=== PATIENT | male | born 1960 | race Two or more races ===

== ENCOUNTER 2025-08-15 02:02 | Inpatient (IN) | payer MEDICAID, OTHER ==
[~2025-08-15] VITALS: Ht 172.7 cm; Wt 81.8 kg
--- NOTE | 2025-08-15 02:22 | ED.PDOC ---
History of Present Illness HPI Comments 65-year-old male who came to ER via EMS for urinary issues. Per EMS, [facility] Patient is bed-bound, has a history of traumatic brain injuries with left-sided residuals, hepatitis-C. For the past 2 hours patient has been complaining of painful urination. Denies any nausea or vomiting. On scene patient's temperature is 100.4 F, tachycardic at 130s REVIEW OF SYSTEMS: General: + fever, no chills, or fatigue HEENT: No sore throat, no earache, no congestion, no neck pain. Cardiac: No chest pain. No palpitations. Lungs: No shortness of breath, no cough. GI: No nausea, no vomiting, no diarrhea, no constipation, + abdominal pain : + dysuria, frequency, or urgency. No hematuria. Musculoskeletal: No joint pain , no joint swelling, no extremity edema. Skin: No rash, no itching. Neuro: No headache, no dizziness, no weakness (And as sated in HPI) PHYSICAL EXAM: General: Awake, alert and oriented. No acute distress. Skin: Skin in warm, dry and intact. Appropriate color for ethnicity. HEENT: The head is normocephalic and atraumatic. Conjunctivae are clear without exudates or hemorrhage. Sclera is non-icteric. Eyelids are normal in appearance without swelling or lesions. Oral mucosa is pink and moist Neck: The neck is supple with normal range of motion. No JVD. Cardiac: Tachycardia No murmurs, gallops, or rubs are auscultated. Respiratory: No signs of respiratory distress. Lung sounds are clear in all lobes bilaterally without rales, rhonchi, or wheezes. Abdominal: Abdomen is soft, positive suprapubic tenderness, no guarding or rigidity. Bowel sounds are present and normoactive in all four quadrants. Extremities: Lower extremities without edema. Neurological: The patient is awake, alert and oriented to person, place, and time with normal speech. Speech is clear. There is no facial asymmetry. Psychiatric: Appropriate mood and affect. Good judgement and insight. Chief Complaint: Urinary Time Seen by MD: 02:21 Reviewed Notes: Drive In Teller Notes Allergies: Coded Allergies: NO KNOWN ALLERGIES (Unverified , 08/15/25) Home Meds Reported Medications Atorvastatin Calcium (ATORVASTATIN CALCIUM) 40 Mg Tab, 1 TAB PO DAILY, #30 TAB 5 Refills 08/15/25 Lactulose (Lactulose) 10 Gm/15 Ml Ling, 10 GM PO, #60 ML 08/15/25 Trazodone HCl (Trazodone Hydrocloride) 100 Mg Tab, 100 MG PO, TAB 08/15/25 Sertraline Hcl (Sertraline Hcl) 100 Mg Tab, 2 TAB PO BID, #90 TAB 1 Refill 08/15/25 Information Source: Patient Mode of Arrival: EMS Past Medical History Past Medical History (Other): Traumatic brain injury, left-sided residual, bed-bound, hepatitis-C Surgical History: Denies all surgeries Family History Family History: Reviewed,noncontributory to illness Social History Smoker: Non-Smoker Alcohol: Denies ETOH Use Drugs: Denies Drug Use Lives In: Assisted Care Was a procedure done? Was a procedure done?: No Differential Dx Considerations may include: Anemia, electrolyte imbalance, kidney failure, urinary tract infection, bed- bound, X-Ray, Labs, Meds, VS Vital Signs Date Time Temp Pulse Resp B/P (MAP) Pulse Ox O2 Delivery O2 Flow Rate FiO2 08/15/25 12:00 85 08/15/25 11:00 79 14 116/80 (92) 97 08/15/25 10:00 93 15 106/74 (85) 97 08/15/25 08:49 97 Room Air* 0 21 08/15/25 08:15 85 15 97 Room Air* 0 21 08/15/25 08:15 98.2 85 15 101/73 (82) 97 98.2 08/15/25 08:00 85 08/15/25 07:00 85 20 107/65 (79) 100 08/15/25 06:00 89 18 103/71 (82) 100 08/15/25 05:00 107 19 121/84 (96) 100 08/15/25 03:31 98.7 08/15/25 03:00 110 20 114/85 (95) 100 08/15/25 02:31 111 18 100 Nasal Cannula* 3 32 08/15/25 02:31 98.7 111 18 110/78 (89) 100 98.7 08/15/25 02:06 100.4 139 18 122/77 94 100.4 Lab Test 08/15/25 12:05 08/15/25 02:25 Range/Units Urine Color Yellow Yellow Urine Clarity Clear Clear Urine pH 6.5 5.0-9.0 Urine Specific [place] 1.022 1.001-1.035 Urine Protein Negative Negative Urine Ketones Trace Negative Urine Blood Negative Negative /uL Urine Nitrite Negative Negative Urine Bilirubin Negative Negative Urine Urobilinogen Normal Negative mg/dL Urine Leukocyte Esterase Negative Negative /uL Urine RBC 1 0 - 3 /hpf Urine Microscopic WBC 1 0-3 /HPF Urine Squamous Epithelial Cells Few <5 /hpf Urine Bacteria None seen None Seen /hpf Urine Glucose Normal Normal mg/dL White Blood Count 15.0 H 4.4-10.8 10^3/uL Red Blood Count 5.58 4.5-5.90 10^6/uL Hemoglobin 17.2 13.5-17.5 g/dL Hematocrit 49.4 41.0-53.0 % Mean Corpuscular Volume 88.6 80.0-100.0 fL Mean Corpuscular Hemoglobin 30.8 28.0-32.0 pg Mean Corpuscular Hemoglobin Concent 34.7 32.0-36.0 g/dL Red Cell Distribution Width 13.3 11.8-14.3 % Platelet Count 268 140-450 10^3/uL Mean Platelet Volume 8.6 6.9-10.8 fL Neutrophils (%) (Auto) 87.0 H 37.0-80.0 % Lymphocytes (%) (Auto) 7.3 L 10.0-50.0 % Monocytes (%) (Auto) 5.3 0.0-12.0 % Eosinophils (%) (Auto) 0.2 0.0-7.0 % Basophils (%) (Auto) 0.2 0.0-2.0 % Neutrophils # (Auto) 13.1 H 1.6-8.6 10 ^3/uL Lymphocytes # (Auto) 1.1 0.4-5.4 10 ^3/uL Monocytes # (Auto) 0.8 0-1.3 10 ^3/uL Eosinophils # (Auto) 0 0-0.8 10 ^3/uL Basophils # (Auto) 0 0-0.2 10 ^3/uL Nucleated Red Blood Cells 0.3 % Sodium Level 141 136-145 mmol/L Potassium Level 3.7 3.5-5.1 mmol/L Chloride Level 105 98-107 mmol/L Carbon Dioxide Level 23 20-31 mmol/L Anion Gap 13 5-15 Blood Urea Nitrogen 13 9-23 mg/dL Creatinine 0.75 0.700-1.30 mg/dL Glomerular Filtration Rate Calc 101 >90 mL/min BUN/Creatinine Ratio 17.3 10.0-20.0 Serum Glucose 121 H 74-106 mg/dL Lactic Acid Level 1.4 0.4-2.0 mmol/L Calcium Level 9.6 8.7-10.4 mg/dL Total Bilirubin 0.6 0.2-1.0 mg/dL Aspartate Amino Transferase (AST) 28 13-40 U/L Alanine Aminotransferase (ALT) 34 7-40 U/L Alkaline Phosphatase 95 46-116 U/L Total Protein 7.7 5.7-8.2 g/dL Albumin 4.3 3.2-4.8 g/dL Current Medications Medications (Trade) Dose Ordered Sig/Sharyn Route Start Time Stop Time Status Last Admin Sodium Chloride 1,000 ml @ 130 mls/hr [id number] ONCE IV 08/15/25 02:30 08/15/25 10:11 HI 08/15/25 03:30 Sodium Chloride 1,000 ml @ 1,000 mls/hr Q1H ONCE IV 08/15/25 02:30 08/15/25 03:29 DC 08/15/25 03:30 Acetaminophen (Tylenol Tablet) 650 mg ONCE ONCE PO 08/15/25 03:30 08/15/25 03:31 DC 08/15/25 03:31 Piperacillin Sod/ Tazobactam Sod 100 ml @ 100 mls/hr ONCE ONCE IV 08/15/25 04:30 08/15/25 05:29 HI 08/15/25 05:33 Ceftriaxone Sodium 50 ml @ 100 mls/hr ONCE ONCE IV 08/15/25 04:30 08/15/25 04:59 DC 08/15/25 04:49 Sodium Chloride 1,000 ml @ 1,000 mls/hr Q1H ONCE IV 08/15/25 05:45 08/15/25 06:44 HI 08/15/25 07:00 Sodium Chloride 790 ml @ 790 mls/hr Q1H ONCE IV 08/15/25 05:45 08/15/25 06:44 HI 08/15/25 07:00 CHEST RADIOGRAPH INDICATION: Suspected Sepsis TECHNIQUE: Single frontal view of the chest was obtained COMPARISON: None FINDINGS: Lines and Tubes: None Lungs: Clear Pleura: No effusion. No pneumothorax. Cardiomediastinal contours: Unremarkable Bones: Unremarkable IMPRESSION: 1. No acute disease. Time of 1ST Reevaluation: 02:14 Reevaluation 1ST: Unchanged Patient Education/Counseling: Need For Follow Up Family Education/Counseling: No Family Present SEPSIS Sepsis Screen Physician Orders Vital Signs Q1HR (08/15/25 02:20) Saline Lock (08/15/25 02:20) Senior [employer] Etl Developer (08/15/25 ) Rectal/Core Temps Only (08/15/25 02:20) Notify Md If Abnormal Vs (08/15/25 02:20) Blood Culture (08/15/25 02:20) Chest Xray 1 View (08/15/25 02:20) Straight Cath. (08/15/25 ) Insert [place]ancock Catheter QSHIFT (08/15/25 05:16) Vital Signs Date Time Temp Pulse Resp B/P (MAP) Pulse Ox O2 Delivery O2 Flow Rate FiO2 08/15/25 12:00 85 08/15/25 11:00 79 14 116/80 (92) 97 08/15/25 10:00 93 15 106/74 (85) 97 08/15/25 08:49 97 Room Air* 0 21 08/15/25 08:15 85 15 97 Room Air* 0 21 08/15/25 08:15 98.2 85 15 101/73 (82) 97 98.2 08/15/25 08:00 85 08/15/25 07:00 85 20 107/65 (79) 100 08/15/25 06:00 89 18 103/71 (82) 100 08/15/25 05:00 107 19 121/84 (96) 100 08/15/25 03:31 98.7 08/15/25 03:00 110 20 114/85 (95) 100 08/15/25 02:31 111 18 100 Nasal Cannula* 3 32 08/15/25 02:31 98.7 111 18 110/78 (89) 100 98.7 08/15/25 02:06 100.4 139 18 122/77 94 100.4 Laboratory Tests Test 08/15/25 02:25 Lactic Acid Level 1.4 mmol/L (0.4-2.0) White Blood Count 15.0 10^3/uL (4.4-10.8) H Departure 1 Departure Time of Disposition: 05:40 Impression: Primary Impression: Sepsis Disposition: ADMITTED INPATIENT Condition: Stable Comments Patient admitted to hospitalist service for further treatment, evaluation and monitoring. Critical Care Note Critical Care Time?: No Stability Stability form required: No Heart Score Heart Score: Heart Score Response (Comments) Value History N/A 0 EKG N/A 0 Age N/A 0 Risk Factors N/A 0 Troponin N/A 0 Total 0 I personally scribed for JOSÉ LUIS CALHOUN MD ([email or web address]) on 08/15/25 at 02:22. Electronically submitted by [place] ([email or web address]). I personally scribed for JOSÉ LUIS CALHOUN MD ([email or web address]) on 08/15/25 at 04:29. Electronically submitted by [place] ([email or web address]). JOSÉ LUIS CALHOUN MD Aug 15, 2025 02:22
[2025-08-15 02:31] VITALS: PULSE 111; RESP 18; O2SAT 100
--- NOTE | 2025-08-15 03:25 | DVH ---
CHEST RADIOGRAPH INDICATION: Suspected Sepsis TECHNIQUE: Single frontal view of the chest was obtained COMPARISON: None FINDINGS: Lines and Tubes: None Lungs: Clear Pleura: No effusion. No pneumothorax. Cardiomediastinal contours: Unremarkable Bones: Unremarkable IMPRESSION: 1. No acute disease.
[2025-08-15] MEDS: SODIUM CHLORIDE 0.9% 1,000 ML IV ONE ×3 (03:30→07:00)
[2025-08-15] MEDS: ACETAMINOPHEN 325 MG TAB PO ONE (03:31)
[2025-08-15 03:49] LABS: Alanine Aminotransferase 34 U/L (7-40); Albumin 4.3 g/dL (3.2-4.8); Alkaline Phosphatase 95 U/L (46-116); Anion Gap 13 (5-15); BUN/Creatinine Ratio 17.3 (10.0-20.0); Bilirubin, Total 0.6 mg/dL (0.2-1.0); Blood Urea Nitrogen 13 mg/dL (9-23); Calcium 9.6 mg/dL (8.7-10.4); Carbon Dioxide 23 mmol/L (20-31); Chloride 105 mmol/L (98-107); Potassium 3.7 mmol/L (3.5-5.1); Sodium 141 mmol/L (136-145); Total Protein 7.7 g/dL (5.7-8.2)
[2025-08-15 03:55] LABS: Glucose 121 mg/dL (74-106)
[2025-08-15 04:00] LABS: Hematocrit 49.4 % (41.0-53.0); Hemoglobin 17.2 g/dL (13.5-17.5); Mean Corpuscular Hemoglobin 30.8 pg (28.0-32.0); Mean Corpuscular Volume 88.6 fL (80.0-100.0); Nucleated Red Blood Cells % 0.3 %
[2025-08-15] MEDS: PIPERACILLIN-TAZOB 3.375GM 100 ML IV ONE (05:33)
[2025-08-15] MEDS: SODIUM CHLORIDE 0.9% IV ONE (07:00)
[2025-08-15 08:15] VITALS: PULSE 85; RESP 15; O2SAT 97
[2025-08-15] MEDS: SODIUM CHLORIDE 0.9% 1,000 ML IV SCH (12:15)
[2025-08-15] MEDS ORDERED: ACETAMINOPHEN 325 MG TAB PO PRN (12:15)
[2025-08-15] MEDS ORDERED: NITROGLYCERIN 0.4 MG SL TAB SL PRN (12:15)
[2025-08-15] MEDS ORDERED: MORPHINE SULFATE 4 MG/ML SYR/VIAL IV PRN (12:15)
[2025-08-15] MEDS: HYDROcodone-ACET 5/325MG TAB PO PRN (13:14)
[2025-08-15 13:24] LABS: Urine Protein, UAD Negative (Negative)
[2025-08-15] MEDS: MORPHINE SULFATE 4 MG/ML SYR/VIAL IV PRN (17:20)
[2025-08-15] MEDS ORDERED: LACT10SO3 PO (19:08)
[2025-08-15] MEDS ORDERED: TRAZ-184 PO (19:08)
[2025-08-15] MEDS ORDERED: ATOR40TA52 PO (19:08)
[2025-08-15] MEDS ORDERED: SERT-160 PO (19:08)
[2025-08-15 20:00] VITALS: PULSE 84; RESP 18; O2SAT 95
[2025-08-15 21:00] VITALS: BP 138/92; PULSE 80; RESP 18; TEMP 98.9; O2SAT 94
[2025-08-16] VITALS (8 sets, daily range): BP systolic 122–135; BP diastolic 81–96; PULSE 65–96; RESP 16–19; TEMP 96.9–98.4; O2SAT 92–95
[2025-08-16] MEDS: ENOXAPARIN SOD 40 MG/0.4 ML SYRINGE SC SCH (10:48)
[2025-08-17] VITALS (8 sets, daily range): BP systolic 115–163; BP diastolic 81–110; PULSE 84–122; RESP 18–21; TEMP 98–98.8; O2SAT 92–98
[2025-08-17] MEDS: HYDROmorphone HCL 2 MG/ML VL/or syr IV PRN (01:46)
[2025-08-18] VITALS (9 sets, daily range): BP systolic 101–159; BP diastolic 76–97; PULSE 84–106; RESP 16–20; TEMP 97.4–99; O2SAT 94–97
[2025-08-18] MEDS: LIDOCAINE 2% JELLY 11ml (GLYDO) UR ONE (11:47)
--- NOTE | 2025-08-18 15:06 | DVHHP2 ---
History of Present Illness HPI 65-year-old male who came to ER via EMS for urinary issues. Per EMS[facility] Patient is bed-bound, has a history of traumatic brain injuries with left-sided residuals, hepatitis-C. For the past 2 hours patient has been complaining of painful urination. Denies any nausea or vomiting. On scene patient's temperature is 100.4 F, tachycardic at 130s Home Meds Reported Medications Atorvastatin Calcium (ATORVASTATIN CALCIUM) 40 Mg Tab, 1 TAB PO DAILY, #30 TAB 5 Refills 08/15/25 Lactulose (Lactulose) 10 Gm/15 Ml Ling, 10 GM PO, #60 ML 08/15/25 Trazodone HCl (Trazodone Hydrocloride) 100 Mg Tab, 100 MG PO, TAB 08/15/25 Sertraline Hcl (Sertraline Hcl) 100 Mg Tab, 2 TAB PO BID, #90 TAB 1 Refill 08/15/25 H&P Exam Vital Signs Vital Signs Date Time Temp Pulse Resp B/P (MAP) Pulse Ox O2 Delivery O2 Flow Rate FiO2 08/18/25 12:52 97.7 91 16 159/96 (117) 95 97.7 08/18/25 08:00 Room Air* 0 21 SEPSIS Sepsis Screen Date sepsis recognized/suspect: Aug 15, 2025 Time Sepsis recognized/suspect: 0850 Recent Procedure: No On Antibiotic Therapy: No Respiratory Rate >20: No Heart Rate >90: No Temp<36 C (96.8 F) or >38.3 C: No SBP <90 or MAP <65 mmHG: No New Acute Mental Status Change: No Is the patient on CPAP, BIPAP,: No Vital Signs Date Time Temp Pulse Resp B/P (MAP) Pulse Ox O2 Delivery O2 Flow Rate FiO2 08/18/25 12:52 97.7 91 16 159/96 (117) 95 97.7 08/18/25 12:40 87 17 126/72 08/18/25 12:10 91 16 159/96 08/18/25 09:41 88 17 100/76 08/18/25 09:11 84 18 111/70 08/18/25 09:00 97.4 84 18 101/76 (84) 95 97.4 08/18/25 08:00 86 17 97 Room Air* 0 21 Medications Medications Dose Ordered Sig/Sharyn Route Start Time Stop Time Status Last Admin Dose Admin Lidocaine HCl 11 ml ONCE ONCE UR 08/18/25 11:30 08/18/25 11:31 DC 08/18/25 11:47 11 ML Labs/Xrays Labs Test 08/15/25 12:05 08/15/25 02:25 Range/Units Urine Color Yellow Yellow Urine Clarity Clear Clear Urine pH 6.5 5.0-9.0 Urine Specific [place] 1.022 1.001-1.035 Urine Protein Negative Negative Urine Ketones Trace Negative Urine Blood Negative Negative /uL Urine Nitrite Negative Negative Urine Bilirubin Negative Negative Urine Urobilinogen Normal Negative mg/dL Urine Leukocyte Esterase Negative Negative /uL Urine RBC 1 0 - 3 /hpf Urine Microscopic WBC 1 0-3 /HPF Urine Squamous Epithelial Cells Few <5 /hpf Urine Bacteria None seen None Seen /hpf Urine Glucose Normal Normal mg/dL White Blood Count 15.0 H 4.4-10.8 10^3/uL Red Blood Count 5.58 4.5-5.90 10^6/uL Hemoglobin 17.2 13.5-17.5 g/dL Hematocrit 49.4 41.0-53.0 % Mean Corpuscular Volume 88.6 80.0-100.0 fL Mean Corpuscular Hemoglobin 30.8 28.0-32.0 pg Mean Corpuscular Hemoglobin Concent 34.7 32.0-36.0 g/dL Red Cell Distribution Width 13.3 11.8-14.3 % Platelet Count 268 140-450 10^3/uL Mean Platelet Volume 8.6 6.9-10.8 fL Neutrophils (%) (Auto) 87.0 H 37.0-80.0 % Lymphocytes (%) (Auto) 7.3 L 10.0-50.0 % Monocytes (%) (Auto) 5.3 0.0-12.0 % Eosinophils (%) (Auto) 0.2 0.0-7.0 % Basophils (%) (Auto) 0.2 0.0-2.0 % Neutrophils # (Auto) 13.1 H 1.6-8.6 10 ^3/uL Lymphocytes # (Auto) 1.1 0.4-5.4 10 ^3/uL Monocytes # (Auto) 0.8 0-1.3 10 ^3/uL Eosinophils # (Auto) 0 0-0.8 10 ^3/uL Basophils # (Auto) 0 0-0.2 10 ^3/uL Nucleated Red Blood Cells 0.3 % Sodium Level 141 136-145 mmol/L Potassium Level 3.7 3.5-5.1 mmol/L Chloride Level 105 98-107 mmol/L Carbon Dioxide Level 23 20-31 mmol/L Anion Gap 13 5-15 Blood Urea Nitrogen 13 9-23 mg/dL Creatinine 0.75 0.700-1.30 mg/dL Glomerular Filtration Rate Calc 101 >90 mL/min BUN/Creatinine Ratio 17.3 10.0-20.0 Serum Glucose 121 H 74-106 mg/dL Lactic Acid Level 1.4 0.4-2.0 mmol/L Calcium Level 9.6 8.7-10.4 mg/dL Total Bilirubin 0.6 0.2-1.0 mg/dL Aspartate Amino Transferase (AST) 28 13-40 U/L Alanine Aminotransferase (ALT) 34 7-40 U/L Alkaline Phosphatase 95 46-116 U/L Total Protein 7.7 5.7-8.2 g/dL Albumin 4.3 3.2-4.8 g/dL Microbiology Date/Time Source Procedure Growth Status 08/16/25 15:00 Stool Clostridium difficile Toxin Assay - Final Complete 08/15/25 02:45 Blood Blood Culture - Preliminary NO GROWTH AFTER 72 HOURS OF INCUBATION. Resulted Assessment/Plan Primary Diagnosis for services rendered on 08/15/25 65-year-old male who came to ER via EMS for urinary issues. Per EMS, [facility] Patient is bed-bound, has a history of traumatic brain injuries with left-sided residuals, hepatitis-C. For the past 2 hours patient has been complaining of painful urination. Denies any nausea or vomiting. On scene patient's temperature is 100.4 F, tachycardic at 130s Sepsis due to suspected UTI acute cystitis bed-bound/weakness painful urination leukocytosis tx for UTI pain control Plan discussed with: Patient HAZEL DORMAN Aug 18, 2025 15:05
--- NOTE | 2025-08-18 15:06 | DVHDS2 ---
Discharge Summary Date of Admission Aug 15, 2025 at 12:06 Date of Discharge: Aug 18, 2025 Labs/Diagnostic Data: Laboratory Results Test 08/15/25 12:05 08/15/25 02:25 Urine Color Yellow (Yellow) Urine Clarity Clear (Clear) Urine pH 6.5 (5.0-9.0) Urine Specific [place] 1.022 (1.001-1.035) Urine Protein Negative (Negative) Urine Ketones Trace (Negative) Urine Blood Negative /uL (Negative) Urine Nitrite Negative (Negative) Urine Bilirubin Negative (Negative) Urine Urobilinogen Normal mg/dL (Negative) Urine Leukocyte Esterase Negative /uL (Negative) Urine RBC 1 /hpf (0 - 3) Urine Microscopic WBC 1 /HPF (0-3) Urine Squamous Epithelial Cells Few /hpf (<5) Urine Bacteria None seen /hpf (None Seen) Urine Glucose Normal mg/dL (Normal) White Blood Count 15.0 10^3/uL (4.4-10.8) Red Blood Count 5.58 10^6/uL (4.5-5.90) Hemoglobin 17.2 g/dL (13.5-17.5) Hematocrit 49.4 % (41.0-53.0) Mean Corpuscular Volume 88.6 fL (80.0-100.0) Mean Corpuscular Hemoglobin 30.8 pg (28.0-32.0) Mean Corpuscular Hemoglobin Concent 34.7 g/dL (32.0-36.0) Red Cell Distribution Width 13.3 % (11.8-14.3) Platelet Count 268 10^3/uL (140-450) Mean Platelet Volume 8.6 fL (6.9-10.8) Neutrophils (%) (Auto) 87.0 % (37.0-80.0) Lymphocytes (%) (Auto) 7.3 % (10.0-50.0) Monocytes (%) (Auto) 5.3 % (0.0-12.0) Eosinophils (%) (Auto) 0.2 % (0.0-7.0) Basophils (%) (Auto) 0.2 % (0.0-2.0) Neutrophils # (Auto) 13.1 10 ^3/uL (1.6-8.6) Lymphocytes # (Auto) 1.1 10 ^3/uL (0.4-5.4) Monocytes # (Auto) 0.8 10 ^3/uL (0-1.3) Eosinophils # (Auto) 0 10 ^3/uL (0-0.8) Basophils # (Auto) 0 10 ^3/uL (0-0.2) Nucleated Red Blood Cells 0.3 % Sodium Level 141 mmol/L (136-145) Potassium Level 3.7 mmol/L (3.5-5.1) Chloride Level 105 mmol/L (98-107) Carbon Dioxide Level 23 mmol/L (20-31) Anion Gap 13 (5-15) Blood Urea Nitrogen 13 mg/dL (9-23) Creatinine 0.75 mg/dL (0.700-1.30) Glomerular Filtration Rate Calc 101 mL/min (>90) BUN/Creatinine Ratio 17.3 (10.0-20.0) Serum Glucose 121 mg/dL (74-106) Lactic Acid Level 1.4 mmol/L (0.4-2.0) Calcium Level 9.6 mg/dL (8.7-10.4) Total Bilirubin 0.6 mg/dL (0.2-1.0) Aspartate Amino Transferase (AST) 28 U/L (13-40) Alanine Aminotransferase (ALT) 34 U/L (7-40) Alkaline Phosphatase 95 U/L (46-116) Total Protein 7.7 g/dL (5.7-8.2) Albumin 4.3 g/dL (3.2-4.8) Other Laboratory Tests 08/15/25 02:25 Brief Hx & Hospital Course: for services rendered on 08/15/25 65-year-old male who came to ER via EMS for urinary issues. Per EMS, [facility] Patient is bed-bound, has a history of traumatic brain injuries with left-sided residuals, hepatitis-C. For the past 2 hours patient has been complaining of painful urination. Denies any nausea or vomiting. On scene patient's temperature is 100.4 F, tachycardic at 130s Sepsis due to suspected UTI acute cystitis bed-bound/weakness painful urination leukocytosis discharged to [facility] Condition at Discharge: Fair Final Diagnosis/Problems List see above Discharge Disposition: Assisted Living Facility Discharge Instruct/Medications Scheduled Atorvastatin Calcium (Atorvastatin Calcium), 1 TAB PO DAILY, (Reported) Sertraline Hcl (Sertraline Hcl), 2 TAB PO BID, (Reported) Miscellaneous Medications Lactulose (Lactulose), 10 GM PO, (Reported) Trazodone HCl (Trazodone Hydrocloride), 100 MG PO, (Reported) Discharge Statement: "Patient was advised to return to the ER or call 911 if any headaches, dizziness, shortness of breath, chest pain, abdominal pain, bleeding, fevers, or worsening of medical condition. Patient was counseled about treatment plan, medications, possible side effects, patientverbalized understanding. All questions were answered to the best of my ability. This discharge took greater then 30 minutes in planning, reviewing documentation, counseling the patient, and discussing with other team members." ASSESSMENT ASSESSMENT Assessment HAZEL DORMAN DO Aug 18, 2025 15:06
--- NOTE | 2025-08-18 15:06 | DVHPN2 ---
Progress Note Date Seen: Aug 16, 2025 Medical Necessity Reason Pt with a Central, PICC or Fol: No Objective vital signs Vital Sign Date Time Temp Pulse Resp B/P (MAP) Pulse Ox O2 Delivery O2 Flow Rate FiO2 08/18/25 12:52 97.7 91 16 159/96 (117) 95 97.7 08/18/25 08:00 Room Air* 0 21 medications Current Medications Medications Dose Ordered Sig/Sharyn Route Start Time Stop Time Status Last Admin Dose Admin Sodium Chloride 1,000 ml @ 60 mls/hr [id number] IV 08/15/25 12:15 08/18/25 07:30 60 MLS/HR Acetaminophen/ Hydrocodone Bitart 1 tab Q4HP PRN PO 08/15/25 12:15 08/18/25 13:26 1 TAB Enoxaparin Sodium 40 mg DAILY SC 08/16/25 10:00 08/18/25 09:09 40 MG Acetaminophen 650 mg Q6HP PRN PO 08/15/25 12:15 Nitroglycerin 0.4 mg Q5MINP PRN SL 08/15/25 12:15 Morphine Sulfate 2 mg Q30M PRN IV 08/15/25 12:15 Ceftriaxone Sodium 50 ml @ 100 mls/hr DAILY IV 08/16/25 10:00 08/18/25 09:09 100 MLS/HR Hydromorphone HCl 0.5 mg Q4HPRN PRN IV 08/16/25 23:30 08/18/25 12:10 0.5 MG Examination: GENERAL:Normal, HEENT:Normal, NECK:Normal laboratory and microbiology Laboratory Tests 08/15/25 02:25 Test 08/15/25 02:25 Range/Units Serum Glucose 121 H 74-106 mg/dL Microbiology Date/Time Source Procedure Growth Status 08/16/25 15:00 Stool Clostridium difficile Toxin Assay - Final Complete 08/15/25 02:45 Blood Blood Culture - Preliminary NO GROWTH AFTER 72 HOURS OF INCUBATION. Resulted Labs and/or images reviewed: Labs reviewed by me, Image(s) reviewed by me Problem List/Assessment/Plan Problem List/Assessment/Plan for services rendered on 08/16/25 65-year-old male who came to ER via EMS for urinary issues. Per EMS, [facility] Patient is bed-bound, has a history of traumatic brain injuries with left-sided residuals, hepatitis-C. For the past 2 hours patient has been complaining of painful urination. Denies any nausea or vomiting. On scene patient's temperature is 100.4 F, tachycardic at 130s Sepsis due to suspected UTI acute cystitis bed-bound/weakness painful urination leukocytosis tx for UTI pain control Plan discussed with: Patient My Orders My Orders Orders - HAZEL DORMAN DO Procedure Category Date Status Time * Urology Consult CONS 08/17/25 Transmitted 17:35 HAZEL DORMAN DO Aug 18, 2025 15:06
--- NOTE | 2025-08-18 15:06 | DVHPN2 ---
Progress Note Date Seen: Aug 17, 2025 Medical Necessity Reason Pt with a Central, PICC or Fol: No Subjective Review of Systems: HEENT:Normal, CVS:Normal Objective vital signs Vital Sign Date Time Temp Pulse Resp B/P (MAP) Pulse Ox O2 Delivery O2 Flow Rate FiO2 08/18/25 12:52 97.7 91 16 159/96 (117) 95 97.7 08/18/25 08:00 Room Air* 0 21 medications Current Medications Medications Dose Ordered Sig/Sharyn Route Start Time Stop Time Status Last Admin Dose Admin Sodium Chloride 1,000 ml @ 60 mls/hr [id number] IV 08/15/25 12:15 08/18/25 07:30 60 MLS/HR Acetaminophen/ Hydrocodone Bitart 1 tab Q4HP PRN PO 08/15/25 12:15 08/18/25 13:26 1 TAB Enoxaparin Sodium 40 mg DAILY SC 08/16/25 10:00 08/18/25 09:09 40 MG Acetaminophen 650 mg Q6HP PRN PO 08/15/25 12:15 Nitroglycerin 0.4 mg Q5MINP PRN SL 08/15/25 12:15 Morphine Sulfate 2 mg Q30M PRN IV 08/15/25 12:15 Ceftriaxone Sodium 50 ml @ 100 mls/hr DAILY IV 08/16/25 10:00 08/18/25 09:09 100 MLS/HR Hydromorphone HCl 0.5 mg Q4HPRN PRN IV 08/16/25 23:30 08/18/25 12:10 0.5 MG Examination: GENERAL:Normal, HEENT:Normal, NECK:Normal, LUNGS:Normal laboratory and microbiology Laboratory Tests 08/15/25 02:25 Test 08/15/25 02:25 Range/Units Serum Glucose 121 H 74-106 mg/dL Microbiology Date/Time Source Procedure Growth Status 08/16/25 15:00 Stool Clostridium difficile Toxin Assay - Final Complete 08/15/25 02:45 Blood Blood Culture - Preliminary NO GROWTH AFTER 72 HOURS OF INCUBATION. Resulted Labs and/or images reviewed: Labs reviewed by me, Image(s) reviewed by me Problem List/Assessment/Plan Problem List/Assessment/Plan for services rendered on 08/17/25 65-year-old male who came to ER via EMS for urinary issues. [facility] EMS[facility] Patient is bed-bound, has a history of traumatic brain injuries with left-sided residuals, hepatitis-C. For the past 2 hours patient has been complaining of painful urination. Denies any nausea or vomiting. On scene patient's temperature is 100.4 F, tachycardic at 130s Sepsis due to suspected UTI acute cystitis bed-bound/weakness painful urination leukocytosis tx for UTI pain control Plan discussed with: Patient My Orders My Orders Orders - HAZEL DORMAN DO Procedure Category Date Status Time * Urology Consult CONS 08/17/25 Transmitted 17:35 HAZEL DORMAN DO Aug 18, 2025 15:06
--- NOTE | 2025-09-13 13:36 | DVHPN2 ---
Date of Service: Aug 15, 2025 Billing Provider: HAZEL DORMAN DO Common Visit Codes: [id number] INP/OBS CARE (HIGH) HAZEL DORMAN DO Sep 13, 2025 13:36
--- NOTE | 2025-09-13 13:37 | DVHPN2 ---
Date of Service: Aug 17, 2025 Billing Provider: HAZEL DORMAN DO Common Visit Codes: [id number] INP/OBS CARE(HIGH) HAZEL DORMAN DO Sep 13, 2025 13:37
--- NOTE | 2025-09-13 13:37 | DVHPN2 ---
Date of Service: Aug 16, 2025 Billing Provider: HAZEL DORMAN DO Common Visit Codes: [id number] INP/OBS CARE(HIGH) HAZEL DORMAN DO Sep 13, 2025 13:37
--- NOTE | 2025-09-13 13:57 | DVHPN2 ---
Date of Service: Aug 18, 2025 Billing Provider: HAZEL DORMAN DO Common Visit Codes: [id number] DISCH DAY >30min HAZEL DORMAN DO Sep 13, 2025 13:57
== END 2025-08-18 21:00 | disposition home or self-care (01) | DRG 720 ==
LOC: ER 02:02 → EDBD 02:02 → OVERFLOW 12:06 → CENTRAL 16:06
PROVIDERS: ADMIT Internal Medicine; ATTEND Internal Medicine
DX: A41.9 Sepsis, unspecified organism (principal); R53.2 Functional quadriplegia; N30.00 Acute cystitis without hematuria; Z74.01 Bed confinement status; Z87.820 Personal history of traumatic brain injury
CPT/HCPCS: 36415; 71045; 80053; 81001; 83605; 85025; 87040; 87493; 96374; G0378; J2543